=== PATIENT | male | born 1955 | race African-American/Black ===

== ENCOUNTER → 2016-06-12 | Day surgery (SDC) | payer OTHER ==
[~2016-06-12] MED LIST: ADVIL200 M3 PO
--- NOTE | ~2016-06-12 | OR ---
Unit #: [id number] #: [id number] Patient: SHANNON STARR [id number] [address] [id number] MR#: [id number] NAME: SHANNON STARR ROOM: Date of Procedure: 06/12/2016 Admission Date: 06/12/2016 Surgeon: Kit Vega M.D. : 1955 Attending Physician: Kit Vega M.D. OPERATIVE REPORT PROCEDURE PERFORMED Colonoscopy with snare polypectomy. INDICATIONS FOR PROCEDURE A 60-year-old gentleman with history of blood in the stool, undergoing colonoscopy for the first time. MEDICATIONS Monitored anesthesia. POSTOPERATIVE FINDINGS 1. 1 cm flat polyp, ascending colon, snared and sent for histopathology. 2. Internal hemorrhoids. 3. Good prep. PLAN Follow up on the pathology report. Repeat colonoscopy in 3 to 5 years. DESCRIPTION OF PROCEDURE The patient was explained of the procedure, risks, and benefits along with the risks and benefits of anesthesia. He was brought to the endoscopy room. Propofol anesthesia was given. Rectal exam was done, which was normal. Colonoscope was lubricated, passed up the rectum, advanced under direct vision all the way to the cecum. Cecum was identified by ileocecal valve and appendiceal orifice. Flat polyp seen in the ascending colon was snared and sent for histopathology. Few diverticula were noted. I retroflexed in the rectum, internal hemorrhoids were seen. Scope was gently pulled out. He tolerated it well. No major complications were seen. Dictated by... Aj Foster/rizwan TD: 06/12/2016 21:58 JOB #: [id number] CC: Janina Blair M.D. Unit #: [id number] #: [id number] Patient: SHANNON STARR OPERATIVE REPORT X Kit Vega MD X PROCEDURE OPERATIVE NOTE
== END | disposition home or self-care (01) ==
LOC: COPS 10:03
DX: D12.2 Benign neoplasm of ascending colon (principal); K64.8 Other hemorrhoids; K92.1 Melena; K21.9 Gastro-esophageal reflux disease without esophagitis
CPT/HCPCS: 88305; J2250